=== PATIENT | female | born 1965 | race Caucasian/White ===

== ENCOUNTER → 2016-08-04 | Outpatient (CLI) | payer OTHER ==
[~2016-08-04] VITALS: Ht 157.5 cm; Wt 49.0 kg
[~2016-08-04] MED LIST: ASPIR 8181 MG PO; NIFEDIPINE ER30 MG PO; PAXIL10 MG PO; SULFASALAZINE500 M5 PO
--- NOTE | ~2016-08-04 | S ---
[facility] [place] [address] SURGICAL PATH RPT PROCEDURE Name: RAMIRO GIVENS BRENT Room #: REG MIHIR M.Bertrand.#: [id number] Admission: 08/04/16 Date of : 61 Discharge: Report #: [id number] Path Case #: [id number] PATHOLOGY REPORT COLLECTION DATE: 08/04/2016 RECEIVED DATE: 08/04/2016 SUBMITTING PHYS: Dr. Umer Appiah OTHER PHYS: Dr. Ronal Ann SPECIMEN(S) RECEIVED: A.Right pelvic lymph node * * * * * * * * * * * * FINAL DIAGNOSIS: "Right pelvic lymph node," image-guided needle biopsy: - FOLLICULAR LYMPHOMA, LOW-GRADE, GRADE 1-2 OF 3. (SEE COMMENT) - Skeletal muscle, nerve and fibroadipose connective tissue with focal fresh hemorrhage. COMMENT: Sections show needle core biopsy fragments that are predominantly skeletal muscle, fibroadipose connective tissue and a fragment of nerve. Occasional cores are composed of lymphoid tissue with an atypical lymphoid infiltrate. The lymphocytes are predominantly small with round to focally angulated nuclear contours and condensed chromatin. Only rare larger lymphoid cells are noted. Neither a high mitotic rate nor abundant single cell necrosis is seen. Geographic necrosis is not identified. Properly controlled immunohistochemical stains are performed. (Block A1) CD20: Atypical lymphocytes diffusely reactive PAX-5: Atypical lymphocytes diffusely reactive with only rare larger nuclei identified CD3: Highlights admixed T-cells CD10: Stains the neoplastic B-cells BCL-6: Stains the neoplastic B-cells BCL-2: Stains the neoplastic B-cells CD23: Highlights focal residual dendritic cell mesh work and focal B-cell co-expression MUM-1: Highlights rare scattered cells Ki-67: Highlights a proliferative index of approximately 20-30% Overall, the diagnosis is needle core biopsies that are predominantly composed of skeletal muscle, fibroadipose connective tissue, and focal nerve. Lymphoid tissue with involvement by the patient's previously diagnosed follicular lymphoma ([id number] and [id number]) is also present. The current biopsy appears low-grade (grade 1-2 of [facility] [address] [place] [address] SURGICAL PATH RPT PROCEDURE Name: [facility]ONRAMIRO BRENT [id number]mission: 08/04/16 Date of : 61 Discharge: Report #: [id number] Path Case #: [id number]). There is no evidence of diffuse large B-cell lymphoma. Clinical and radiographic correlation is recommended. Home Aid slides are co-reviewed with Dr. Germania Dougherty. The case is discussed with Dr. Ronal Soni on 07/09/16 at approximately 10:00 a.m. (DEANAW:; d/t: 08/06/16) PATHOLOGIST: Lois Blackburn M.D. REPORT ELECTRONICALLY SIGNED BY: Lois Blackburn M.D. DATE/TIME: 08/06/2016 16:41 * * * * * * * * * * * * GROSS PATHOLOGY: The specimen is received in formalin, labeled "Chon, Helise and R pelvic lymph node." Received is a 1.2 x 0.5 x 0.2 cm aggregate of blood-tinged, jade, rubbery, and irregular soft tissue fragments. The specimen is entirely submitted in cassette A1. (TTL; 08/04/2016) CLINICAL HISTORY: Lymphoma INITIAL CPT CODE(S): A; 32490, 40460, 55590, 14730, 77088, 00751, 04413, 89889, 52823, 92477 Professional services performed by [facility] at [facility] [address], [place] [address] Technical services performed by [facility] at [address] [place] [address], [address], [place] [address]. [facility] [address] [place] [address] PHONE: [phone] DIRECTOR: Trey Ramos M.D. * * * END OF REPORT * * *
[2016-08-04 12:26] VITALS: BP 110/69
[2016-08-04 12:40] LABS: HEMATOCRIT 34.3 % (37.0-47.0); HEMOGLOBIN 11.8 gm/dL (12.0-15.0); MCHC 34.4 g/dL (28.0-37.0); MCV 96.1 fL (80.0-100.0); RBC 3.57 mil/uL (4.20-5.00); RDW 13.1 % (10.5-14.5); WBC 5.3 thou/uL (4.0-11.0)
[2016-08-04 12:56] LABS: PROTIME 10.5 Seconds (9.3-11.4)
== END | disposition home or self-care (01) ==
LOC: CAT 12:04
PROVIDERS: Radiology Vascular & Interventional Radiology
DX: C82.06 Follicular lymphoma grade I, intrapelvic lymph nodes (principal); G43.909 Migraine, unspecified, not intractable, without status migrainosus

== ENCOUNTER → 2017-05-12 | Outpatient (CLI) | payer BC, OTHER | LOC: RAD 01:44 | DX: Z12.31 Encounter for screening mammogram for malignant neoplasm of breast (principal) ==

== ENCOUNTER → 2017-05-26 | Outpatient (CLI) | payer BC, OTHER | LOC: RAD 09:57 | DX: N63.20 Unspecified lump in the left breast, unspecified quadrant (principal) ==